=== PATIENT | female | born 1945 | race Caucasian/White ===

== ENCOUNTER → 2020-07-02 15:23 | Outpatient (BNVA) | payer MEDICARE, OTHER, SELFPAY | PROVIDERS: Visit Provider Nurse Practitioner Family | DX: M79.671 Pain in right foot (principal); S92.354A Nondisplaced fracture of fifth metatarsal bone, right foot, initial encounter for closed fracture; W01.0XXA Fall on same level from slipping, tripping and stumbling without subsequent striking against object, initial encounter; I10 Essential (primary) hypertension | CPT/HCPCS: 73630 ==

== ENCOUNTER → 2020-07-16 10:59 | Outpatient (BNVA) | payer MEDICARE, OTHER, SELFPAY | PROVIDERS: Visit Provider Nurse Practitioner Family | DX: S92.354D Nondisplaced fracture of fifth metatarsal bone, right foot, subsequent encounter for fracture with routine healing (principal); X58.XXXD Exposure to other specified factors, subsequent encounter | CPT/HCPCS: 73630 ==

== ENCOUNTER → 2020-07-31 10:41 | Outpatient (BNVA) | payer MEDICARE, OTHER, SELFPAY | PROVIDERS: Visit Provider Nurse Practitioner Family | DX: S92.501D Displaced unspecified fracture of right lesser toe(s), subsequent encounter for fracture with routine healing (principal); X58.XXXD Exposure to other specified factors, subsequent encounter | CPT/HCPCS: 73630 ==

== ENCOUNTER → 2020-08-15 11:00 | Outpatient (BNVA) | payer MEDICARE, OTHER, SELFPAY | PROVIDERS: Visit Provider Podiatrist Foot & Ankle Surgery | DX: S92.354G Nondisplaced fracture of fifth metatarsal bone, right foot, subsequent encounter for fracture with delayed healing (principal); W11.XXXD Fall on and from ladder, subsequent encounter | CPT/HCPCS: 73630 ==

== ENCOUNTER → 2020-09-25 14:54 | Outpatient (BNVA) | payer MEDICARE, OTHER, SELFPAY | PROVIDERS: PCP Family Medicine; Visit Provider Podiatrist Foot & Ankle Surgery | DX: S92.351A Displaced fracture of fifth metatarsal bone, right foot, initial encounter for closed fracture (principal) | CPT/HCPCS: 73630 ==

== ENCOUNTER → 2020-10-22 10:18 | Outpatient (BNVA) | payer MEDICARE, OTHER, SELFPAY | PROVIDERS: PCP Family Medicine; Visit Provider Podiatrist Foot & Ankle Surgery | DX: S92.351D Displaced fracture of fifth metatarsal bone, right foot, subsequent encounter for fracture with routine healing (principal); X58.XXXD Exposure to other specified factors, subsequent encounter | CPT/HCPCS: 73630 ==

== ENCOUNTER → 2023-08-20 12:27 | Outpatient (BNVA) | payer MEDICARE, OTHER, SELFPAY | PROVIDERS: PCP Family Medicine; Visit Provider Nurse Practitioner Family | DX: Z20.822 Contact with and (suspected) exposure to COVID-19 (principal) | CPT/HCPCS: 87426 ==

== ENCOUNTER 2023-12-09 14:57 | Emergency (ER) | payer MEDICARE, OTHER, SELFPAY ==
[2023-12-09 15:12] VITALS: BP 204/73; PULSE 76; RESP 16; TEMP 37.1; O2SAT 97; BMI 28.3
[2023-12-09 15:39] LABS: Basophils % 0.6 %; Eosinophils # 0.1 10^3/uL (0.0-0.8); Eosinophils % 0.9 %; Hematocrit 44.9 % (36-47); Lymphocytes # 1.7 10^3/uL (0.8-4.8); Mean Corpuscular HGB Conc 33.6 g/dL (30-55); Mean Corpuscular Hemoglobin 30.4 pg (27-33); Mean Corpuscular Volume 90.3 fl (85-98); Mean Platelet Volume 9.6 fL (7.4-10.4); Monocytes # 0.5 10^3/uL (0.2-0.9); Neutrophils # 3.12 10^3/uL (1.8-7.7); Neutrophils % 58.5 %; Nucleated Red Blood Cells % 0 %; Platelet Count 197 10^3/cmm (157-399); Red Blood Count 4.97 10^6/uL (3.85-5.65); White Blood Count 5.33 10^3/uL (3.29-11.43)
[2023-12-09 15:52] LABS: INR 1.05 (0.8-1.2)
[2023-12-09 15:53] LABS: Partial Thromboplastin Time 29.8 SECONDS (23.9-36.7)
[2023-12-09 15:57] LABS: Alanine Aminotransferase 11 U/L (0-33); Albumin Level 4.1 g/dL (3.5-5.2); Alkaline Phosphatase 92 U/L (35-105); Aspartate Amino Transferase 16 U/L (0-32); Blood Urea Nitrogen 16 mg/dL (8-23); Calcium 9.7 mg/dL (8.5-10.5); Carbon Dioxide 26 mmol/L (22-29); Chloride 105 mmol/L (98-107); Creatinine Clr Calc Pharmacy 56.2182; Globulin 3.1 g/dL (1.3-4.6); Glucose 103 mg/dL (65-115); Osmolality Calculated 295 mOsm/kg (285-295); Sodium 142 mmol/L (136-145); Total Bilirubin 0.7 mg/dL (0.15-1.2); Total Protein 7.2 g/dL (6.6-8.7)
[2023-12-09 17:52] VITALS: BP 180/92; O2SAT 97
--- NOTE | 2023-12-09 18:03 | ED_ITS ---
HPI - GI Bleed 2 General: Chief complaint: GI Bleed Stated complaint: blood in stool Time Seen by Provider: 12/09/23 17:22 History of Present Illness: 78 yo f p/w cc of Hemoccult positive sto ol from her primary care doctor. Yesterday she had a dark brown stool. She has been watching very closely because she had a GI bleed back in August. It was low-volume. She had a colonoscopy. She was found to have diverticulosis but no source of bleeding was identified. When she saw this dark brown stool yesterday she called her doctor and today brought in a stool sample. It was reportedly Hemoccult positive. Patient reports no nausea, vomiting, abdominal pain, diarrhea, weakness, orthostasis, syncope or any other symptoms. She is not on a blood thinner. She very rarely takes NSAIDs. Review of Systems 2 General: Reports: 10 or more systems reviewed and unremarkable except in HPI and below PFSH ED 2 PFSH: Medical History (Updated 12/09/23 @ 18:49 by Champ Pemberton MD) Hypertension Social History Smoking and tobacco/nicotine status: never used tobacco/nicotine Alcohol intake: never Substance/Drug Use: never Female Reproductive History: Spontaneous abortions: No Physical Exam 2 Const: COMMON NORMALS: no limitations, alert and well nourished EXAM LIMITATIONS: no altered mental status HENMT: COMMON NORMALS: normocephalic, atraumatic and external ears normal H EAD & SCALP: normocephalic and atraumatic EXTERNAL EAR: Yes external ears normal MOUTH: no muffled voice Eye: COMMON NORMALS: EOMs intact bilaterally, conjunctivae normal and no scleral icterus CONJUNCTIVA: Yes conjunctivae normal Neck/C-Spine: GENERAL: Yes normal visual inspection and Yes trachea midline Resp: COMMON NORMALS: normal respiratory effort and No use of accessory muscles Cardio: COMMON NORMALS: regular rate and regular rhythm RATE: regular rate RHYTHM: regular rhythm GI: COMMON NORMALS: Soft to palpation and non-tender PALPATION: Yes Soft to palpation and No Guarding due to palpation present (GI) Extremity: COMMON NORMALS: normal to inspection Neuro: COMMON NORMALS: moves all extremities, no focal motor deficits and no sensory deficits noted SENSORIUM/ORIENTATION: Yes alert SPEECH: speech normal Psych: COMMON NORMALS: mental status grossly normal, Normal thought process present, cooperative, normal affect and speech normal SPEECH: Yes normal speech THOUGHT PROCESS: Normal thought process present Skin: COMMON NORMALS: no rashes or lesions noted, turgor normal and no jaundice GENERAL SKIN EXAM: no rashes or lesions noted and turgor normal Course 2 Vital Signs: Vital signs: Vital Signs Temperature 98.8 F 12/09/23 15:12 Pulse Rate 76 12/09/23 15:12 Respiratory Rate 16 12/09/23 15:12 Blood Pressure 180/92 12/09/23 17:52 Pulse Oximetry 97 12/09/23 18:49 Oxygen Delivery Me thod Room Air 12/09/23 18:49 MDM - GI Bleed Medical Decision Making 78-year-old female presents from outpatient clinic for Hemoccult positive stool and need for labs to check her hemoglobin, platelets, etc. She has had a colonoscopy but has not had an EGD. She is not on a blood thinner. Her abdominal exam is benign. She is slightly anxious. She has a history of hypertension; she seems to have whitecoat hypertension here. Patient does not require any imaging at this time as she does not have any signs of colitis, diverticulitis, or other infectious or emergent etiology. The stool was not black nor red it was simply dark brown. Hemoglobin today is 15 with normal platelets. A referral has been placed to Dr. Armando for consideration of EGD. Patient will be discharged in stable condition with return precautions. Lab Data 12/09/23 15:34 12/09/23 15:34 Laboratory Results WBC 5.33 10^3/uL (3.29-11.43) 12/09/23 15:34 RBC 4.97 10^6/uL (3.85-5.65) 12/09/23 15:34 Hgb 15.10 g/dL (11.27-16.99) 12/09/23 15:34 Hct 44.9 % (36-47) 12/09/23 15:34 MCV 90.3 fl (85-98) 12/09/23 15:34 MCH 30.4 pg (27-33) 12/09/23 15: MCHC 33.6 g/dL (30-55) 12/09/23 15:34 RDW 14.0 % (12.1-15.1) 12/09/23 15:34 Plt Count 197 10^3/cmm (157-399) 12/09/23 15:34 MPV 9.6 fL (7.4-10.4) 12/09/23 15:34 Neut % (Auto) 58.5 % 12/09/23 15:34 Lymph % (Auto) 31.0 % 12/09/23 15:34 [place] % (Auto) 9.0 % 12/09/23 15:34 Eos % (Auto) 0.9 % 12/09/23 15:34 Baso % (Auto) 0.6 % 12/09/23 15:34 Neut # (Auto) 3.12 10^3/uL (1.8-7.7) 12/09/23 15:34 Lymph # (Auto) 1.7 10^3/uL (0.8-4.8) 12/09/23 15:34 [place] # (Auto) 0.5 10^3/uL (0.2-0.9) 12/09/23 15:34 Eos # (Auto) 0.1 10^3/uL (0.0-0.8) 12/09/23 15:34 Baso # (Auto) 0.0 10^3/uL (0.0-0.1) 12/09/23 15:34 Nucleated RBC % (auto) 0 % 12/09/23:34 Nucleated RBCs # 0.0 /100WBC 12/09/23 15:34 PT 14.00 SECONDS (12.1-14.9) 12/09/23 15:34 INR 1.05 (0.8-1.2) 12/09/23 15:34 APTT 29.8 SECONDS (23.9-36.7) 12/09/23 15:34 Sodium 142 mmol/L (136-145) 12/09/23 15:34 Potassium 4.0 mmol/L (3.5-5.1) 12/09/23 15:34 Chloride 105 mmol/L (98-107) 12/09/23 15:34 Carbon Dioxide 26 mmol/L (22-29) 12/09/23 15:34 Anion Gap 15.0 (5-19) 12/09/23 15:34 BUN 16 mg/dL (8-23) 12/09/23 15:34 Creatinine 0.7 mg/dL (0.5-0.9) 12/09/23 15:34 GFR Calculation Not Reportable 12/09/23 15:34 Glucose 103 mg/dL (65-115) 12/09/23 15:34 Calculated Osmolality 295 mOsm/kg (285-295) 12/09/23 15:34 Calcium 9.7 mg/dL (8.5-10.5) 12/09/23 15:34 Total Bilirubin 0.7 mg/dL (0.15-1.2) 12/09/23 15:34 AST 16 U/L (0-32) 12/09/23 15:34 ALT 11 U/L (0-33) 12/09/23 15:34 Alkaline Phosphatase 92 U/L (35-105) 12/09/23 15:34 Total Protein 7.2 g/dL (6.6-8.7) 12/09/23 15:34 Albumin 4.1 g/dL (3.5-5.2) 12/09/23 15:34 Globulin 3.1 g/dL (1.3-4.6) 12/09/23 15:34 No radiology studies performed this visit Discharge Plan Discharge Patient Disposition: Home Clinical Impression: GI bleed Condition: Stable Prescriptions: No Action benazepril 10 mg tablet 10 mg PO DAILY metoprolol tartrate 25 mg tablet 25 mg PO BID Discharge Orders: Discharge ED (Routine); Ordered 12/09/23 Ordered By: Champ Pemberton Referrals: Jovan Armando DO [Physician] - 1 week (Discuss possible EGD (upper endoscopy)) Rosalie Clarke MD [Primary Care Provider] - 4-7 days Discharge Diet: Usual diet Discharge Activity: Resume usual activity Patient Instructions: Gastrointestinal Bleeding (ED) Coding Level of Care Code ED [employer] for Ashly Cornelius
[2023-12-09 18:49] VITALS: O2SAT 97
--- NOTE | 2023-12-10 07:29 | DCPLANNER ---
Message was sent to office on 12/10/23 at 0729. [facility] to contact patient.
== END 2023-12-09 18:57 | disposition home or self-care (01) ==
PROVIDERS: Family Medicine; Emergency Provider Emergency Medicine; PCP Family Medicine
DX: K92.2 Gastrointestinal hemorrhage, unspecified (principal); I10 Essential (primary) hypertension
CPT/HCPCS: 36415; 80053; 85025; 85610; 85730; 99283

== ENCOUNTER → 2023-12-17 10:11 | Outpatient (BNVA) | payer MEDICARE, OTHER, SELFPAY | PROVIDERS: PCP Nurse Practitioner Family; Referring Provider Emergency Medicine; Visit Provider Surgery | DX: K92.1 Melena (principal) | CPT/HCPCS: 99204 ==

== ENCOUNTER 2024-01-13 08:02 | Day surgery (SDC) | payer MEDICARE, OTHER, SELFPAY ==
[2024-01-13 08:28] VITALS: BP 195/101; PULSE 72; RESP 18; TEMP 36.9; O2SAT 97
[2024-01-13] MEDS: sodium chloride 0.9% 1,000 ML 30 ML IV (08:37)
--- NOTE | 2024-01-13 08:39 | ANES.PREANE2 ---
Pre-Anesthetic Assessment Height/Weight: Height 1.6 m Weight 72.575 kg Temp Pulse Resp BP Pulse Ox O2 Del Method 98.5 F 72 18 195/101 97 Room Air 01/13/24 08:28 01/13/24 08:28 01/13/24 08:28 01/13/24 08:28 01/13/24 08:28 01/13/24 08:28 Preop Diagnosis: melana Operation Date: 01/13/24 09:15 [place] Procedures p [id number] egd K92.1(Not Applicable) - Jovan Armando DO Familial anesthetic complications: melana Was Beta Cedric taken within 24 hours: Yes Was Clonidine taken within 24 hours: N/A Last intake: Intake Last Liquid Date 01/12/24 Last Liquid Time 23:00 Last Solid Date 01/12/24 Last Solid Time 21:30 Social No alcohol and No tobacco Exam alert and oriented x 3 Airway Submandibular: within normal limits Cervical ROM: within normal limits Mallampati: Class II Dentition: full History/ROS No significant history except as noted Pulmonary None reported CV/HEM Hypertension None reported Hepatic None reported GI None reported Metabolic None reported Musc/skel None reported Neuropsych None reported Anesthetic Plan ASA status: 2 Anesthesia: MAC Risk of > 500 ml blood loss (7ml/kg in children): No Medications/Allergies Home Medications Medication Instructions Recorded Confirmed Last Taken Type benazepril 10 mg tablet 10 mg PO DAILY 08/20/23 01/11/24 01/11/24 History metoprolol tartrate 25 mg tablet 25 mg PO BID 08/20/23 01/11/24 01/11/24 History Allergies Allergy/AdvReac Type Severity Reaction Status Date / Time No Known Allergies Allergy Verified 08/20/23 12:24 Current Medications Generic Name Dose Route Start Last Admin Trade Name Freq PRN Reason Stop Dose Admin Sodium Chloride 1,000 mls @ 30 mls/hr 01/13/24 08:15 01/13/24 08:37 Sodium Chloride 0.9% IV 01/14/24 08:14 30 mls/hr .Q24H LAVELLE Administration PFSH Anesthesia Medical History Hypertension Family History Mother Cancer pancreas Father Heart attack Social History Smoking and tobacco/nicotine status: never used tobacco/nicotine Alcohol intake: never Substance/Drug Use: never Female Reproductive History Spontaneous abortions: No Data Anesthesia Cardiac Studies: No Data to Display
[2024-01-13 08:57] VITALS: BP 188/90
--- NOTE | 2024-01-13 09:07 | W.PM.OPSUD ---
Surgery/Procedure H&P Update DATE OF PROCEDURE: January 13, 2024 DATE H&P PERFORMED: 12/17/23 H&P UPDATE INFORMATION: I have reviewed H&P completed within last 30 days, I have examined patient prior to procedure and No changes to prior documentation PREOP DIAGNOSIS: melana PLANNED PROCEDURE: Operation Date: 01/13/24 09:15 Proposed Procedures p [id number] egd K92.1(Not Applicable) - Jovan Armando DO
[2024-01-13] MEDS: EPINEPHrine 1 mg/mL INJ XX (09:18)
[2024-01-13 09:28] VITALS: BP 136/69; PULSE 91; RESP 18; TEMP 36.1; O2SAT 95
[2024-01-13 09:40] VITALS: BP 128/70; PULSE 85; RESP 18; O2SAT 95
--- NOTE | 2024-01-13 14:49 | ANE.PACU2 ---
Inpatient post-anesthesia follow up: Airway intact: Yes Vital signs: Temperature 97 F Pulse Rate 85 Respiratory Rate 18 Blood Pressure 128/70 Pulse Oximetry 95 Oxygen Delivery Me thod Room Air Oxygen Flow Rate Fraction of Inspir ed Oxygen Hydration adequate: Yes Nausea and vomiting: No Pain level: 2 Mental status: Baseline
== END 2024-01-13 10:05 | disposition home or self-care (01) ==
PROVIDERS: PCP Nurse Practitioner Family; Visit Provider Surgery
PROC: 0DJ08ZZ Inspection of Upper Intestinal Tract, Via Natural or Artificial Opening Endoscopic (ICD-10-PCS; CPT 43235; principal; 2024-01-13 09:15)
DX: K92.1 Melena (principal); I10 Essential (primary) hypertension; K21.00 Gastro-esophageal reflux disease with esophagitis, without bleeding
CPT/HCPCS: 43255; 88305; 88342; J0171; J7030

== ENCOUNTER → 2024-01-28 09:20 | Outpatient (BNVA) | payer MEDICARE, OTHER, SELFPAY | PROVIDERS: PCP Nurse Practitioner Family; Visit Provider Surgery | DX: K21.00 Gastro-esophageal reflux disease with esophagitis, without bleeding (principal) | CPT/HCPCS: 99214 ==

== ENCOUNTER → 2025-03-06 08:53 | Outpatient (BNVA) | payer MEDICARE, OTHER, SELFPAY | PROVIDERS: PCP Family Medicine; Visit Provider Family Medicine | DX: I10 Essential (primary) hypertension (principal); R00.0 Tachycardia, unspecified; K21.00 Gastro-esophageal reflux disease with esophagitis, without bleeding | CPT/HCPCS: 80053; 80061; 84443; 85025 ==